=== PATIENT | male | born 1980 | race Caucasian/White ===

== ENCOUNTER 2017-05-04 17:17 | Emergency (ER) | payer OTHER ==
[~2017-05-04] VITALS: Ht 180.3 cm; Wt 89.3 kg
[2017-05-04 17:28] VITALS: Ht 180.3 cm; Wt 89.3 kg
[2017-05-04] MEDS ORDERED: KETOROLAC 30 MG INJ IV STA (19:25)
[2017-05-04] MEDS ORDERED: ONDANSETRON 4 MG INJ IV STA (19:25)
[2017-05-04] MEDS ORDERED: SOD CHLORIDE 0.9% 1,000 ML IV STA (19:25)
--- NOTE | 2017-05-04 19:31 | ERD ---
ER Documentation Chief Complaint Chief Complaint rectal pain today and blood in the stool after taking a laxative HPI 37-year-old female with history of intermittent constipation presents to the emergency department for complaints of rectal pain, abdominal pain, and bright red blood in the toilet today. He currently rates his pain at a 10 out of 10 localized to the mid lower abdomen and rectum. Patient states over the past month he has been seen for similar symptoms and diagnosed with constipation. He states he took a laxative today which was given to him by his girlfriend. States he was straining with defecation today and then "cleaned himself "then noticed blood coming from his rectum. He denies nausea, vomiting, diarrhea, dizziness, weakness, headache, chest pain or shortness of breath. ROS All systems reviewed and are negative except as per history of present illness. Allergies Allergies: Coded Allergies: No Known Allergy (Unverified , 05/04/17) Physical Exam Vitals Vital Signs Date Time Temp Pulse Resp B/P Pulse Ox O2 Delivery O2 Flow Rate FiO2 05/04/17 17:28 98.2 75 18 136/86 98 Physical Exam Const: Well-developed, well-nourished, in no acute distress Head: Atraumatic Eyes: Normal Conjunctiva ENT: Normal External Ears, Nose and Mouth. Neck: Full range of motion..~ No meningismus. Resp: Clear to auscultation bilaterally Cardio: Regular rate and rhythm, no murmurs Abd: Soft, non distended. Normal bowel sounds, tenderness over the lower abdominal region. Skin: No petechiae or rashes Back: No midline or flank tenderness Ext: No cyanosis, or edema Neur: Awake and alert Psych: Normal Mood and Affect Rectal exam: No external hemorrhoid, evidence of anal fissure, or swelling surrounding the anus. Prostate normal. Bright red residue sent to lab for occult blood testing. Result Diagram: 05/04/17194805/04/171948 Results 24 hrs Laboratory Tests Test 05/04/17 19:49 05/04/17 19:53 White Blood Count 8.210^3/ul Red Blood Count 4.3910^6/ul Hemoglobin 13.5g/dl Hematocrit 39.6% Mean Corpuscular Volume 90.2fl Mean Corpuscular Hemoglobin 30.8pg Mean Corpuscular Hemoglobin Concent 34.1g/dl Red Cell Distribution Width 12.5% Platelet Count 70846^3/UL Mean Platelet Volume 10.6fl Neutrophils % 49.4% Lymphocytes % 40.2% Monocytes % 7.8% Eosinophils % 2.0% Basophils % 0.4% Nucleated Red Blood Cells % 0.0/100WBC Neutrophils # 4.010^3/ul Lymphocytes # 3.310^3/ul Monocytes # 0.610^3/ul Eosinophils # 0.210^3/ul Basophils # 0.010^3/ul Nucleated Red Blood Cells # 0.010^3/ul Sodium Level 141mmol/L Potassium Level 4.0mmol/L Chloride Level 103mmol/L Carbon Dioxide Level 27mmol/L Anion Gap 15 Blood Urea Nitrogen 15mg/dl Creatinine 0.85mg/dl Glucose Level 103mg/dl Calcium Level 9.7mg/dl Total Bilirubin 0.2mg/dl Direct Bilirubin 0.00mg/dl Indirect Bilirubin 0.2mg/dl Aspartate Amino Transf (AST/SGOT) 40IU/L Alanine Aminotransferase (ALT/SGPT) 47IU/L Alkaline Phosphatase 60IU/L Total Protein 7.5g/dl Albumin 4.3g/dl Globulin 3.20g/dl Albumin/Globulin Ratio 1.34 Lipase 61U/L Urine Color YELLOW Urine Clarity CLEAR Urine pH 5.0 Urine Specific [place] 1.034 Urine Ketones NEGATIVEmg/dL Urine Nitrite NEGATIVEmg/dL Urine Bilirubin NEGATIVEmg/dL Urine Urobilinogen NEGATIVEmg/dL Urine Leukocyte Esterase NEGATIVELeu/ul Urine Microscopic RBC 1/HPF Urine Microscopic WBC 2/HPF Urine Mucus FEW/HPF Urine Hemoglobin NEGATIVEmg/dL Urine Glucose NEGATIVEmg/dL Urine Total Protein 1+mg/dl Current Medications Medications (Trade) Dose Ordered Sig/Yelena Route PRN Reason Start Time Stop Time Status Last Admin Dose Admin Sodium Chloride (NS) 1,000 ml @ 1,000 mls/hr Q1H STAT IV 05/04/17 19:25 05/04/17 20:24 DC 05/04/17 19:49 Ondansetron HCl (Zofran Inj) 4 mg ONCE STAT IV 05/04/17 19:25 05/04/17 19:27 DC 05/04/17 19:48 Ketorolac Tromethamine (Toradol) 30 mg ONCE STAT IV 05/04/17 19:25 05/04/17 19:27 LA 05/04/17 19:48 Procedures/MDM PROCEDURE: CT abdomen and pelvis without contrast. CLINICAL INDICATION: Abdominal Pain TECHNIQUE: CT scan of the abdomen and pelvis without contrast was performed and is reconstructed at 2.5 mm contiguous axial intervals from the dome of the diaphragm to the inferior pubic rami.. The patient was scanned without intravenous contrast. Sagittal and coronal reformatted images were obtained from the axial source images. The calculated radiation dose measures 754 mGy centimeters. The CTDI measures 14 mGy. Individualized dose optimization technique was used for the performance of this exam. This included 1. Automated exposure control. 2. Adjustment of the mA and / or kV according to the patient's size. 3. Use of iterative reconstructed technique. COMPARISON: None. FINDINGS: The lung bases are clear of any infiltrate or nodule. No effusion is seen. The liver is of normal size, contour and attenuation with no mass or ductal dilatation. No gallstones are visualized. No splenic, adrenal or pancreatic abnormalities present. Kidneys are of normal size and contour. No hydronephrosis or masses seen. There is a 2 mm nonobstructing stone in the lower pole of the left kidney. Ureters are of normal course and caliber with no stone. No bladder mass or stone is present. Prostate and seminal vesicles are normal. There is no aneurysm. No adenopathy is present. No bowel mass or obstruction is present. The appendix is normal. There is diverticulosis. No phlegmon, ascites or pneumoperitoneum is visualized. The osseous structures are intact. IMPRESSION: No evidence of obstructive uropathy, diverticulitis or appendicitis. 2 mm left renal calculus. .Vlad Del Rio MD, MD Date Time Electronically viewed and signed by .Vlad Del Rio MD, on 05/04/2017 20: 38 This is a 37-year-old male with a history of chronic constipation intermittently over the past month who presents with increased constipation and bright red blood in his stool today. Vital signs reviewed and within normal limits upon arrival. Physical exam with evidence of lower midline tenderness to palpation. Otherwise unremarkable. CBC showed no evidence of systemic infection or severe anemia. CMP showed no evidence of electrolyte abnormalities, severe acidosis, alkalosis , renal failure, or liver disease. Lipase showed no evidence of acute pancreatitis. UA showed no evidence of acute infection or hematuria. Guaiac CT with evidence of 2 mm stone in left kidney Patient received IV fluids and pain medicine while in the emergency department. Reported significant improvement of symptoms. At this time low suspicion for acute infected stone, appendicitis, diverticulitis, perforated intestine, cholecystitis, pancreatitis, bowel obstruction, or sepsis. Based on patient's history of present illness and physical examination the decision was made to discharge. The patient was re-evaluated after ED treatment and stabilizing measures, and symptoms have improved. There is no evidence of life threatening injuries or illnesses at this time. On re-examination, patient resting in no distress, stable vital signs, reports feeling better and safe for discharge with outpatient follow up with PMD in 1-2 days. Patient given return precautions. Departure Diagnosis: Primary Impression: Abdominal pain Abdominal location: lower abdomen, unspecified Qualified Code: R10.30 - Lower abdominal pain Additional Impressions: Constipated Constipation type: unspecified constipation type Qualified Code: K59.00 - Constipation, unspecified constipation type Bright red blood per rectum Urolithiasis Urinary calculus location: other lower urinary tract location Qualified Code : N21.8 - Calculus of other lower urinary tract location COOPER GOLDEN PA-C May 04, 2017 19:31
[2017-05-04 19:59] LABS: BASOPHILS % 0.4 % (0.0-2.0); EOSINOPHILS # 0.2 10^3/ul (0.0-0.5); HEMATOCRIT 39.6 % (42.0-52.0); HEMOGLOBIN 13.5 g/dl (14.0-18.0); LYMPHOCYTES # 3.3 10^3/ul (0.8-2.9); LYMPHOCYTES % 40.2 % (15.0-51.0); MEAN CORPUSCULAR HEMOGLOBIN 30.8 pg (29.0-33.0); MEAN CORPUSCULAR HGB CONC 34.1 g/dl (32.0-37.0); MEAN CORPUSCULAR VOLUME 90.2 fl (82.0-101.0); MEAN PLATELET VOLUME 10.6 fl (7.4-10.4); MONOCYTE # 0.6 10^3/ul (0.3-0.9); MONOCYTES % 7.8 % (0.0-11.0); NEUTROPHILS % 49.4 % (39.0-77.0); PLATELET COUNT 239 10^3/UL (140-415); RED BLOOD COUNT 4.39 10^6/ul (4.70-6.10); RED CELL DISTRIBUTION WIDTH 12.5 % (11.5-14.5); WHITE BLOOD COUNT 8.2 10^3/ul (4.8-10.8)
[2017-05-04 20:13] LABS: ADD UMIC YES; UR ASCORBIC ACID NEGATIVE (NEGATIVE); UR BILIRUBIN (Dip) NEGATIVE (NEGATIVE); UR BLOOD (Dip) NEGATIVE (NEGATIVE); UR CLARITY CLEAR (CLEAR); UR COLOR YELLOW (YELLOW); UR GLUCOSE (Dip) NEGATIVE (NEGATIVE); UR KETONES (Dip) NEGATIVE (NEGATIVE); UR LEUKOCYTE ESTERASE (Dip) NEGATIVE Leu/ul (NEGATIVE); UR MUCUS FEW /HPF (NONE SEEN); UR NITRITE (Dip) NEGATIVE (NEGATIVE); UR RBC 1 /HPF (0-5); UR SPECIFIC GRAVITY (Dip) 1.034 (1.003-1.030); UR TOTAL PROTEIN (Dip) 1+ mg/dl (NEGATIVE); UR UROBILINOGEN (Dip) NEGATIVE (NEGATIVE)
[2017-05-04 20:16] LABS: ALBUMIN 4.3 g/dl (3.3-4.9); ALBUMIN/GLOBULIN RATIO 1.34; BILIRUBIN,INDIRECT 0.2 mg/dl (0-1.1); BILIRUBIN,TOTAL 0.2 mg/dl (0.2-1.3); CALCIUM 9.7 mg/dl (8.4-10.2); CREATININE 0.85 mg/dl (0.61-1.24); TOTAL PROTEIN 7.5 g/dl (6.1-8.1)
--- NOTE | 2017-05-04 20:38 | RADRPT ---
PROCEDURE: CT abdomen and pelvis without contrast. CLINICAL INDICATION: Abdominal Pain TECHNIQUE: CT scan of the abdomen and pelvis without contrast was performed and is reconstructed a t 2.5 mm contiguous axial intervals from the dome of the diaphragm to the inferior pubic rami.. The patient was scanned without intravenous contrast. Sagittal and coronal reformatted images were obt ained from the axial source images. The calculated radiation dose measures 754 mGy centimeters. The CTDI measures 14 mGy. Individualized dose optimization technique was used for the performance of this exam. This included 1. Automated exposure control. 2. Adjustment of the mA and / or kV according to the patient's size. 3. Use of iterative reconstructed technique. COMPARISON: None. FINDINGS: The lung bases are clear of any infiltrate or nodule. No effusion is seen. The liver is of normal size, contour and attenuation with no mass or ductal dilatation. No gallston es are visualized. No splenic, adrenal or pancreatic abnormalities present. Kidneys are of normal size and contour. No hydronephrosis or masses seen. There is a 2 mm nonobstr ucting stone in the lower pole of the left kidney. Ureters are of normal course and caliber with no stone. No bladder mass or stone is present. Prostate and seminal vesicles are normal. There is no aneurysm. No adenopathy is present. No bowel mass or obstruction is present. The appendix is normal. There is diverticulosis. No phle gmon, ascites or pneumoperitoneum is visualized. The osseous structures are intact. IMPRESSION: No evidence of obstructive uropathy, diverticulitis or appendicitis. 2 mm left renal calculus. .Vlad Del Rio MD, MD Date Time Electronically viewed and signed by .Vlad Del Rio MD, MD on 05/04/2017 20:38 .A/
[2017-05-04] MEDS ORDERED: ANR PR (20:54)
[2017-05-04] MEDS ORDERED: DOCU-144 PO (20:54)
[2017-05-04] MEDS ORDERED: POLY17PO6 PO (20:54)
[2017-05-04] MEDS ORDERED: TAMS-14 PO (20:54)
[2017-05-04] MEDS ORDERED: NAPR-260 PO (20:54)
== END 2017-05-04 22:17 | disposition home or self-care (01) ==
LOC: FTE 17:17
DX: K59.00 Constipation, unspecified (principal); N21.8 Other lower urinary tract calculus
CPT/HCPCS: 36415; 74176; 80053; 81001; 82270; 83690; 85025; 96374; 96375; J1885; J2405; J7030; Z7502